=== PATIENT | male | born 1945 | race Caucasian/White ===

== ENCOUNTER 2022-05-24 11:07 | Emergency (ER) | payer OTHER, MEDICARE | END 2022-05-24 14:10 | disposition home or self-care (01) | LOC: LL.ED 11:07 | DX: S70.12XA Contusion of left thigh, initial encounter (principal); W22.09XA Striking against other stationary object, initial encounter | CPT/HCPCS: 99283 ==

== ENCOUNTER 2023-12-11 11:14 | Emergency (ER) | payer MEDICARE ==
[2023-12-11] MEDS: oxyCODONE 5 MG Tab PO ONE (13:10)
[2023-12-11] MEDS: Take Home: oxyCODONE HCl 5 MG Tab, 5 Tab Pack PO ONE (14:25)
[2023-12-11] MEDS: Take Home: oxyCODONE HCl 5 MG Tab, 5 Tab Pack ONE (15:04)
== END 2023-12-11 14:27 | disposition home or self-care (01) ==
LOC: LL.ED 11:14
DX: M25.531 Pain in right wrist (principal); Z88.1 Allergy status to other antibiotic agents; Z88.8 Allergy status to other drugs, medicaments and biological substances; Z79.899 Other long term (current) drug therapy; X50.1XXA Overexertion from prolonged static or awkward postures, initial encounter
CPT/HCPCS: 73090-RT; 99283; A9270-GY

== ENCOUNTER 2023-12-13 10:09 | Emergency (ER) | payer MEDICARE ==
[2023-12-13 10:42] LABS: BASOPHILS ABSOLUTE AUTO 0.03 K/uL (0.00-0.20); BASOPHILS PERCENT AUTO 0.3 % (0.0-2.0); EOSINOPHILS ABSOLUTE AUTO 0.04 K/uL (0.00-0.50); EOSINOPHILS PERCENT AUTO 0.4 % (0.0-5.0); LYMPHOCYTES ABSOLUTE AUTO 1.18 K/uL (0.50-3.50); LYMPHOCYTES PERCENT AUTO 11.5 % (10.0-50.0); MEAN CORPUSCULAR HEMOGLOBIN 36.4 pg (28.2-33.3); MEAN CORPUSCULAR HGB CONC 33.3 g/dL (31.7-36.0); MEAN CORPUSCULAR VOLUME 109.3 fL (84.0-98.0); MONOCYTES ABSOLUTE AUTO 8.01 K/uL (0.00-1.00); MONOCYTES PERCENT AUTO 78.4 % (2.0-14.0); NEUTROPHILS ABSOLUTE AUTO 0.96 K/uL (1.40-7.00); NEUTROPHILS PERCENT AUTO 9.4 % (45.0-80.0); PLATELET COUNT,PLT 174 K/uL (150-350); RED BLOOD CELL COUNT 3.02 M/uL (4.33-5.41); RED CELL DISTRIBUTION WIDTH 13.3 % (11.2-14.1); WHITE BLOOD CELL COUNT,WBC 10.2 K/uL (4.0-10.2)
[2023-12-13 11:03] LABS: ALBUMIN 2.9 g/dL (3.4-5.0); ANION GAP 8.9 meq/L (7-15); BILIRUBIN TOTAL 0.5 mg/dL (0.2-1.0); CARBON DIOXIDE,CO2 28.1 mmol/L (21.0-32.0); CREATININE 0.78 mg/dL (0.51-1.17); EST CRCL DRUG DOSING (CG) 81.89 mL/min; MAGNESIUM 1.8 mg/dL (1.8-2.4); POTASSIUM,K 3.8 mmol/L (3.5-5.1); PROTEIN TOTAL,TP 6.5 g/dL (6.4-8.2)
[2023-12-13] MEDS: predniSONE 20 MG Tab PO ONE (11:10)
[2023-12-13] MEDS: cefTRIAXone 1 GM in Sodium Chloride 0.9% 100 ML IV ONE (11:11)
[2023-12-13] MEDS: Sodium Chloride 0.9% 10 ML Syringe FLUSH PRN (11:14)
[2023-12-13] MEDS: Ketorolac 15 MG/ML SDV IVPUSH ONE (11:40)
== END 2023-12-13 12:27 | disposition home or self-care (01) ==
LOC: LL.ED 10:09
DX: M79.601 Pain in right arm (principal); M79.89 Other specified soft tissue disorders; Z79.899 Other long term (current) drug therapy; Z88.1 Allergy status to other antibiotic agents
CPT/HCPCS: 36415; 80053; 83605; 83735; 85025; 85379; 96365; 96375; 99283-25; J0696; J1885; J3490; J7512

== ENCOUNTER 2024-05-02 09:54 | Emergency (ER) | payer MEDICARE | END 2024-05-02 10:22 | disposition home or self-care (01) | LOC: LL.ED 09:54 | DX: M19.031 Primary osteoarthritis, right wrist (principal); Z79.899 Other long term (current) drug therapy; Z88.1 Allergy status to other antibiotic agents | CPT/HCPCS: 99283; 99284 ==

== ENCOUNTER 2024-07-20 09:39 | Emergency (ER) | payer MEDICARE | END 2024-07-20 10:55 | disposition home or self-care (01) | LOC: LL.ED 09:39 | DX: S99.911A Unspecified injury of right ankle, initial encounter (principal); Z87.891 Personal history of nicotine dependence; Z79.899 Other long term (current) drug therapy; Z88.1 Allergy status to other antibiotic agents; X50.9XXA Other and unspecified overexertion or strenuous movements or postures, initial encounter | CPT/HCPCS: 73610-RT; 99283 ==